=== PATIENT | female | born 1970 | race Caucasian/White ===

== ENCOUNTER → 2017-08-26 | Outpatient (CLI) | payer BC ==
[~2017-08-26] MED LIST: APTIOM800 MG PO; ELET40TA PO; GABA300T24 PO; TECFIDERA240 MG PO
== END ==
LOC: LAB 17:14
DX: N39.0 Urinary tract infection, site not specified (principal)
CPT/HCPCS: 87077; 87086; 87186

== ENCOUNTER 2019-09-15 12:40 | Day surgery (SDC) | payer BC ==
[~2019-09-15] VITALS: Ht 162.6 cm; Wt 53.0 kg
[~2019-09-15 12:40] MED LIST changes: +METO100ER PO
--- NOTE | 2019-09-15 15:08 | NUR ---
09/15/19 1508 Hilda Paulino 250CC NACL FLUID DEFICIT-MYOSURE PUMP 150CC NACL FLUID DEFICIT-I/O
--- NOTE | 2019-09-15 15:16 | NUR ---
09/15/19 1516 Sharda Julio PATIENT STATES THAT SHE IS NOT HAVING PAIN PER SE, THAT SHE IS SLIGHTLY UNCOMFORTABLE. PATIENT DOES NOT WANT PAIN MEDICATION AT THIS TIME. VSS. TOLERATING PO FLUIDS/FOOD. WILL CONTINUE TO MONITOR.
== END 2019-09-15 16:05 | disposition home or self-care (01) ==
LOC: ORSCSDS 12:40
PROVIDERS: Obstetrics & Gynecology
PROC: 0UDB8ZX Extraction of Endometrium, Via Natural or Artificial Opening Endoscopic, Diagnostic (ICD-10-PCS; principal; 2019-09-15 14:00)
PROC: 0U5B8ZZ Destruction of Endometrium, Via Natural or Artificial Opening Endoscopic (ICD-10-PCS; principal; 2019-09-15 14:00)
DX: N92.0 Excessive and frequent menstruation with regular cycle (principal); N94.6 Dysmenorrhea, unspecified; G35 Multiple sclerosis; Z79.899 Other long term (current) drug therapy
CPT/HCPCS: 88305; J0690; J1100; J2405; J2704; J3010; J7120

== ENCOUNTER → 2020-06-12 | Outpatient (CLI) | payer BC ==
[~2020-06-12] MED LIST changes: -GABA300T24 PO; +GRALISE300 M1 PO; +LIDO700A20 TOP; +OMEP20ER PO
[2020-06-12 14:39] LABS: BASOPHILS ABSOLUTE AUTO 0.05 K/mm3 (0.00-0.23); BASOPHILS PERCENT AUTO 1 % (0-2); EOSINOPHILS ABSOLUTE AUTO 0.01 K/mm3 (0.00-0.68); EOSINOPHILS PERCENT AUTO 0 % (0-6); Hematocrit 27.5 % (33.0-51.0); Hemoglobin 9.5 g/dL (11.5-16.0); IMMATURE GRAN ABSOLUTE AUTO 0.02 K/mm3 (0.00-0.10); IMMATURE GRAN PERCENT AUTO 0 % (0-1); LYMPHOCYTES ABSOLUTE AUTO 1.17 K/mm3 (0.84-5.20); LYMPHOCYTES PERCENT AUTO 16 % (21-46); MONOCYTES ABSOLUTE AUTO 0.41 K/mm3 (0.16-1.47); MONOCYTES PERCENT AUTO 6 % (4-13); Mean Corpuscular HGB Conc 34.5 g/dL (31.5-36.5); Mean Corpuscular Volume 90 fL (80-100); Mean Platelet Volume 10.9 fL (9.1-12.4); NEUTROPHILS ABSOLUTE AUTO 5.57 K/mm3 (1.96-9.15); NEUTROPHILS PERCENT AUTO 77 % (41-73); Platelet Count 265 K/mm3 (150-400); RDW Coefficient Variation 12.7 % (11.7-14.2); RDW Standard Deviation 41.7 fL (35.1-46.3); Red Blood Cell Count 3.06 M/mm3 (3.80-5.20); White Blood Cell Count 7.23 K/mm3 (4.00-11.30)
[2020-06-12 14:49] LABS: Alanine Aminotransfer (ALT/SGP 29 U/L (12-78); Albumin, Blood 3.6 g/dL (3.4-5.0); Albumin/Globulin Ratio 1.3 (0.8-1.8); Alk Phos 51 U/L (40-126); Anion Gap 10 mmol/L (6-16); Aspartate Aminotrans (AST/SGOT 15 U/L (12-37); Bilirubin, Total 0.2 mg/dL (0.1-1.0); Blood Urea Nitrogen 30 mg/dL (8-24); Bun/Creatinine Ratio 76.9 (12.0-20.0); CO2, Blood 24 mmol/L (21-32); Calcium, Blood 8.1 mg/dL (8.5-10.1); Chloride, Blood 103 mmol/L (98-108); Creatinine, Blood 0.39 mg/dL (0.40-1.00); Globulin, Blood 2.8 g/dL (2.2-4.0); Glomerular Filtration Rate >60 (60-); Glucose, Blood 130 mg/dL (70-99); Potassium, Blood 3.6 mmol/L (3.5-5.5); Sodium, Blood 137 mmol/L (136-145); Total Protein, Blood 6.4 g/dL (6.4-8.2)
[2020-06-12 16:45] LABS: IMMATURE RETIC FRACTION 13.7 % (2.3-16.0); RETICULOCYTE COUNT PERCENT 2.26 % (0.50-2.50)
== END | disposition home or self-care (01) ==
LOC: LAB SHORT 14:34 → LAB EV 14:34
PROVIDERS: Physician Assistant Medical
DX: K92.2 Gastrointestinal hemorrhage, unspecified (principal)
CPT/HCPCS: 80053; 83690; 85025; 85045

== ENCOUNTER 2020-06-13 14:42 | Inpatient (IN) | payer BC ==
[~2020-06-13] VITALS: Ht 162.6 cm; Wt 51.3 kg
[~2020-06-13 14:42] MED LIST changes: -HYDR1TAB94 PO; -LIDO700A20 TOP; -OMEP20ER PO
[2020-06-13] MEDS ORDERED: OMEP20ER PO (16:43)
[2020-06-13] MEDS ORDERED: LIDO700A20 TOP (16:44)
--- NOTE | 2020-06-13 17:50 | NUR ---
CALLED THE ED FOR REPORT AT 1710; HOWEVER NURSE NOT AVAILABLE AT THIS MOMENT AND WILL CALL BACK
--- NOTE | 2020-06-13 18:41 | NUR ---
PATIENT ARRIVED TO ROOM VIA W/C. DR. PRAKASH AT BEDSIDE ASSESSING PATIENT. VSS, HR 113, 100% ON RA. ORDER TO TRANSFUSE 1 UNIT PRBC'S. AWAITING BLOOD FROM BLOOD BANK. PATIENT ORIENTED TO ROOM AND USE OF CALL LIGHT.
--- NOTE | 2020-06-13 21:06 | NUR ---
CALL PLACED TO HOSPITALIST, DR. CHANDLER TO CHANGE TIMES ON PT'S LONG ACTING GABAPENTIN, APTIOM, AND METOPROLOL FROM AM AND EVENING TIMES TO HS.
[2020-06-13 23:33] LABS: Hematocrit 22.5 % (33.0-51.0); Hemoglobin 7.6 g/dL (11.5-16.0)
--- NOTE | 2020-06-14 05:01 | NUR ---
SHIFT ASSESSMENT: VSS. AFEB. HR 95-115. DENIES SOB. 02 SAT 98%. DENIES DIZZINESS OR LIGHTHEADEDNESS. 1 UNIT BLOOD ADMINISTERED PER ORDERS. H/H 7.6 AFTER INFUSION. PT REMAINS ON CLEAR LIQUIDS, WILL MOVE TO NPO STATUS AT 1300 IN PREP FOR EGD TODAY. MEDICATED FOR MIGRAINE AND BLACK CAFFEINATED TEA ADMINISTERED, PT STATES HELPFUL. MINOR HEADACHE THIS AM. SLEPT VERY LITTLE. NO BM REPORTED. NO N/V. ABD SOFT, NONTENDER, NONDISTENDED. WILL CONT TO MONITOR.
[2020-06-14 05:04] LABS: BASOPHILS ABSOLUTE AUTO 0.03 K/mm3 (0.00-0.23); BASOPHILS PERCENT AUTO 1 % (0-2); EOSINOPHILS ABSOLUTE AUTO 0.06 K/mm3 (0.00-0.68); EOSINOPHILS PERCENT AUTO 1 % (0-6); Hematocrit 22.4 % (33.0-51.0); Hemoglobin 7.4 g/dL (11.5-16.0); IMMATURE GRAN ABSOLUTE AUTO 0.03 K/mm3 (0.00-0.10); IMMATURE GRAN PERCENT AUTO 1 % (0-1); LYMPHOCYTES ABSOLUTE AUTO 1.97 K/mm3 (0.84-5.20); LYMPHOCYTES PERCENT AUTO 37 % (21-46); MONOCYTES ABSOLUTE AUTO 0.46 K/mm3 (0.16-1.47); MONOCYTES PERCENT AUTO 9 % (4-13); Mean Corpuscular HGB 30.2 pg (26.0-34.0); Mean Corpuscular Volume 91 fL (80-100); NEUTROPHILS ABSOLUTE AUTO 2.79 K/mm3 (1.96-9.15); NEUTROPHILS PERCENT AUTO 52 % (41-73); Platelet Count 191 K/mm3 (150-400); RDW Coefficient Variation 13.2 % (11.7-14.2); RDW Standard Deviation 42.8 fL (35.1-46.3); Red Blood Cell Count 2.45 M/mm3 (3.80-5.20); White Blood Cell Count 5.34 K/mm3 (4.00-11.30)
[2020-06-14 05:27] LABS: Anion Gap 3 mmol/L (6-16); Blood Urea Nitrogen 8 mg/dL (8-24); Bun/Creatinine Ratio 19.7 (12.0-20.0); CO2, Blood 28 mmol/L (21-32); Calcium, Blood 7.8 mg/dL (8.5-10.1); Chloride, Blood 112 mmol/L (98-108); Creatinine, Blood 0.41 mg/dL (0.40-1.00); Glomerular Filtration Rate >60 (60-); Glucose, Blood 93 mg/dL (70-99); Potassium, Blood 3.7 mmol/L (3.5-5.5); Sodium, Blood 143 mmol/L (136-145)
--- NOTE | 2020-06-14 07:39 | NUR ---
ASSUMED CARE OF PT- BEDSIDE REPORT COMPLETED WITH NIGHT ELIU COUGHLIN. PER REPORT PT IS HERE FOR GI BLEED. PLAN IS FOR UPPER SCOPE TODAY, SIPS AND CHIPS UNTIL 1300 THEN STRICT NPO. PT STATED SHE HAS A MIGRAINE THAT IS RETURNING AT THIS TIME WILL MEDICATE PER EMAR. PT STATED SHE HAS HAD NO MORE STOOLS SINCE ADMIT. 1 UNIT PRBC'S WERE ADMINISTERED LAST NIGHT. HGB IN THE 7 RANGE THIS AM. PT STATED SHE HAS A REMEDY SHE USES FOR HER MIGRAINE HEADACHES IF THE SUMATRIPTAN IS INEFFECTIVE HOWEVER IT IS THE SAME CLASS OF MEDICATION ADVIL AND ALEVE SO SHE IS UNABLE TO TAKE IT. PT ALERT AND ORIENTED INDEPENDENT IN THE ROOM PER REPORT. NO S&S OF DISTRESS AT THE TIME OF REPORT. SINUS 95 ON TELE LAST NIGHT, SHE HAS BEEN SINUS TACH PRIOR.
--- NOTE | 2020-06-14 15:34 | NUR ---
Patient up to Ambulate independently. Gait steady. History, Chart, Medications and Allergies reviewed before start of procedure.Lungs clear T/O to Auscultation. Patient confirms NPO status and agrees with scheduled surgery.
--- NOTE | 2020-06-14 15:37 | NUR ---
06/14/20 1537 AMELIA ARMSTRONG History, Chart, Medications and Allergies reviewed before start of procedure. 3-LEAD EKG REVIEWED WITH PHYSICIAN PRIOR TO START OF PROCEDURE. O2 VIA N/C INTACT THROUGHOUT SEDATION/PROCEDURE. MONITOR INTACT WITH CONTINUOUS PULSE OXIMETRY AND INTERMITTENT BP. PATIENT DETERMINED TO BE ASA APPROPRIATE FOR PROPOFOL SEDATION PRIOR TO START OF PROCEDURE BY DR. WEISS
[2020-06-14 16:33] LABS: Hematocrit 24.1 % (33.0-51.0); Hemoglobin 7.9 g/dL (11.5-16.0)
--- NOTE | 2020-06-14 19:35 | NUR ---
SHIFT SUMMARY- PT HAS BEEN NPO ALL SHIFT AND HAD AN UPPER ENDOSCOPY THIS EVENING WHERE A MASS WAS FOUND IN THE STOMACH, PT IS AWAREOF THIS. CT OF THE ABDOMEN WAS ORDERED WITH ORAL CONTRAST PER DR WEISS. DR WEISS SPOKE TO DR TRAYLOR ABOUT THE PT ALREADY, HE WILL POSSIBLY BE IN TO SEE HER TOMORROW. PT ALERT AND ORIENTED INDEPENDENT IN THE ROOM, CALLS APPROPRIATELY. PT HAS HAD A MIGRAINE ALL SHIFT, SPOKE TO [facility] WHO STATED THE PT IS ALLOWED 2 DOSES OF ELITRIPTAN IN 24 HOURS SO NEXT DOSE AVAILABLE AT 2030. PT MEDICATED WITH IV REGLAN AND TYLENOL THIS EVENING JUST PRIOR TO SHIFT CHANGE. BEDSIDE REPORT COMPLETED WITH NIGHT RN, CARE ROUNDING COMPOLETED AT THAT TIME.
--- NOTE | 2020-06-15 04:06 | NUR ---
SHIFT SUMMARY A/O, ABLE TO MAKE NEEDS KNOWN. COOPERATIVE WITH CARE. CALLS AND ANSWERS QUESTIONS APPROPRIATELY. INDEPENDENT IN ROOM. C/O PAIN IN THE FORM OF MIGRAINE; MEDICATED PER EMAR. UTILIZING NON-PHARM ALTERNATIVES WELL. CT COMPLETED. APPEARED TO REST INTERMITTENTLY. TELE RUNNING ST IN 100's. VSS/AFEBRILE. NO OTHER ACUTE CHANGES NOTED AT THIS TIME. BED REAMINS IN LOWEST POSITION. CALL LIGHT AND BELONGINGS WITHIN REACH. WCTM. REPORT TO ONCOMING RN.
[2020-06-15 06:08] LABS: Hematocrit 22.9 % (33.0-51.0); Hemoglobin 7.5 g/dL (11.5-16.0); Mean Corpuscular HGB Conc 32.8 g/dL (31.5-36.5); Mean Corpuscular Volume 95 fL (80-100); Mean Platelet Volume 10.2 fL (9.1-12.4); Platelet Count 222 K/mm3 (150-400); RDW Coefficient Variation 13.8 % (11.7-14.2); RDW Standard Deviation 45.3 fL (35.1-46.3); Red Blood Cell Count 2.42 M/mm3 (3.80-5.20); White Blood Cell Count 6.16 K/mm3 (4.00-11.30)
--- NOTE | 2020-06-15 09:36 | NUR ---
CALLED DR MCCORMICK- PT ALERT AND ORIENTED DENIES CP OR SOB HR ON TELE HAS BEEN TRENDING UP STEADILY SINCE 0900. TELE CALLED AT THE TIME OF THE CONVERSATION PT WAS UP TO SIT 140'S. RECIEVED ORDER FOR NS AT 100 ML PER HOUR PLACED ORDER WAITING FOR VERIFICATION. PT HAD GOTTEN UP TO USE THE BATHROOM AT THE TIME OF THE PHONE CALL AND HER HR CAME BACK DOWN TO 118 ON TELE ONCE SHE WAS AT REST.
[2020-06-15 09:59] LABS: BASOPHILS ABSOLUTE AUTO 0.05 K/mm3 (0.00-0.23); BASOPHILS PERCENT AUTO 1 % (0-2); EOSINOPHILS ABSOLUTE AUTO 0.05 K/mm3 (0.00-0.68); EOSINOPHILS PERCENT AUTO 1 % (0-6); Hematocrit 24.9 % (33.0-51.0); Hemoglobin 8.2 g/dL (11.5-16.0); IMMATURE GRAN ABSOLUTE AUTO 0.01 K/mm3 (0.00-0.10); IMMATURE GRAN PERCENT AUTO 0 % (0-1); LYMPHOCYTES ABSOLUTE AUTO 1.44 K/mm3 (0.84-5.20); LYMPHOCYTES PERCENT AUTO 24 % (21-46); MONOCYTES ABSOLUTE AUTO 0.54 K/mm3 (0.16-1.47); MONOCYTES PERCENT AUTO 9 % (4-13); Mean Corpuscular HGB 30.8 pg (26.0-34.0); Mean Corpuscular HGB Conc 32.9 g/dL (31.5-36.5); Mean Corpuscular Volume 94 fL (80-100); Mean Platelet Volume 10.1 fL (9.1-12.4); NEUTROPHILS ABSOLUTE AUTO 3.99 K/mm3 (1.96-9.15); NEUTROPHILS PERCENT AUTO 66 % (41-73); Platelet Count 244 K/mm3 (150-400); RDW Standard Deviation 44.5 fL (35.1-46.3); Red Blood Cell Count 2.66 M/mm3 (3.80-5.20); White Blood Cell Count 6.08 K/mm3 (4.00-11.30)
--- NOTE | 2020-06-15 13:58 | NUR ---
CALLED TELEPHONE REPORT TO MACHINE BANDER AND CELLOPHANER JENNIFER- PT STILL IN SURGERY AT THIS TIME, CALLED REPORT NO FURTHER QUESTIONS AT THIS TIME RN TO CALL WITH QUESTIONS. PT BELONGINGS TRANSFERED TO SURG ROOM 226, PT TELE BOX TRANSFERED, RN AWARE IT IS IN THE ROOM AND NEEDS TO BE VERIFIED AGAIN WHEN THE PT GETS BACK FROM SURGERY. NOTIFIED TELE OF PT TRANSFER.
--- NOTE | 2020-06-15 19:23 | NUR ---
POST OP: REPORT RECEIVED FROM MEDICAL RN MARIBEL, WELL LINUX SECURITY ADMINISTRATOR CATIA. PT TO UNIT AT ABOUT 1415. UPON ASSESSMENT PT IS A/O, A LITTLE SLEEPY. SURGICAL SITES WNL. VSS, PT DENIES PAIN AT THIS TIME. LINUX SECURITY ADMINISTRATOR REPORTS RANDAL DRAIN JUST EMPTIED, BULB COMPRESSED. NGT TO LIS PER ORDER. PT AT BEDSIDE. EDUCATED ABOUT CALL LIGHT. WILL CTM
--- NOTE | 2020-06-15 19:34 | NUR ---
SUMMARY: NO ACUTE CHANGE SINCE POST OP. TELE VERIFIED WITH LAURE FINE UPON PT ARRIVAL TO UNIT, PT GIVEN EVENING DOSE OF LOPRESSER. MEDICATED FOR PAIN PER EMAR. FLUIDS STARTED. PT ABLE TO SIT ON COMMODE AND ATTEMPTED TO VOID, WITHOUT SUCCESS. PLAN TO TRY AGAIN LATER, NOC RN MADE AWARE. REPORTED DIZZINESS WHEN UP, RESLOVED QUICKLY WHEN LAID BACK DOWN IN BED. PT DENIES DIZZINESS CURRENTLY. NO ACUTE SAFETY CONCERNS.
[2020-06-16 05:05] LABS: Hematocrit 21.7 % (33.0-51.0); Mean Corpuscular HGB 31.1 pg (26.0-34.0); Mean Corpuscular HGB Conc 32.3 g/dL (31.5-36.5); Mean Corpuscular Volume 96 fL (80-100); Mean Platelet Volume 10.2 fL (9.1-12.4); Platelet Count 214 K/mm3 (150-400); RDW Coefficient Variation 14.5 % (11.7-14.2); RDW Standard Deviation 46.7 fL (35.1-46.3); Red Blood Cell Count 2.25 M/mm3 (3.80-5.20); White Blood Cell Count 9.37 K/mm3 (4.00-11.30)
[2020-06-16 05:19] LABS: Albumin, Blood 2.7 g/dL (3.4-5.0); Anion Gap 5 mmol/L (6-16); Blood Urea Nitrogen 8 mg/dL (8-24); Bun/Creatinine Ratio 20.3 (12.0-20.0); CO2, Blood 26 mmol/L (21-32); Calcium, Blood 7.6 mg/dL (8.5-10.1); Chloride, Blood 112 mmol/L (98-108); Glomerular Filtration Rate >60 (60-); Glucose, Blood 101 mg/dL (70-99); Phosphorus, Blood 2.9 mg/dL (2.5-4.9); Potassium, Blood 3.6 mmol/L (3.5-5.5); Sodium, Blood 143 mmol/L (136-145)
--- NOTE | 2020-06-16 05:57 | NUR ---
SHIFT SUMMARY POD 1 EX LAP WITH MASS REMOVAL, AA0X4. PICCO CDI RANDAL DRAIN PATENT AND DRAINING 40ML. NG TUBE PATENT, 250ML BROWN LIQUID. MEDICATED FOR NAUSEA X2. PAIN MANAGED PER EMAR WITH DILAUDID X4. K PACK PROVIDED FOR ABD MUSCLE CRAMPING. PT STATED SOME RELIEF WITH THAT. PT UNABLE TO VOID DURING SHIFT AFTER TRYING MULTIPLE TIMES, HESITANT TO KEEP ATTEMPTING SHE GOT NAUSEOUS AND A LITTLE DIZZY WHEN TRANSFERING. AT END OF SHIFT REPORTED STARTING TO FEEL WEAKER STATED IT WAS A LITTLE LIKE WHEN SHE WENT TO URGENT CARE PRIOR TO ADMISSION.
--- NOTE | 2020-06-16 10:10 | NUR ---
NGT CLAMPED AT THIS TIME. WILL RESUME LIS IN ONE HR
[2020-06-16 11:30] LABS: Hematocrit 21.4 % (33.0-51.0); Hemoglobin 6.8 g/dL (11.5-16.0)
--- NOTE | 2020-06-16 17:10 | NUR ---
SUMMARY: PT IS POD1 EX LAP WITH REMOVAL OF MASS. PT A/O, VSS. PT REPORTED ABD "SPASMS" EARLY IN THE DAY AND THAT THE IV PAIN MEDICATION WAS HELPING ONLY A LITTLE. DR. TRAYLOR NOTIFIED AND PT STARTED ON DILAUDID MEDICAL INTERPRETER. PT ALSO RECEIVED 2 UNITS PRBC'S, TOLERATED TRANSFUSIONS WELL, VSS. LIQUID GABAPENTIN GIVEN THROUGH NGT, FLUSHED BEFORE AND AFTER AND CLAMPED FOR 1 HR AFTER EACH ADMINISTRATION. SURGICAL SITES/DRAINS WNL. PT REPORTS PAIN IS BETTER NOW THAT THE MEDICAL INTERPRETER IS INFUSING. PT ALSO UNABLE TO VOID, DR. MCCORMICK NOTIFIED AND TRUJILLO CATH PLACED PER ORDER. WILL CTM PT STATUS WILL PASS REPORT TO DIGNA NOWAK
[2020-06-17 04:54] LABS: BASOPHILS ABSOLUTE AUTO 0.02 K/mm3 (0.00-0.23); BASOPHILS PERCENT AUTO 0 % (0-2); EOSINOPHILS ABSOLUTE AUTO 0.04 K/mm3 (0.00-0.68); EOSINOPHILS PERCENT AUTO 1 % (0-6); Hematocrit 28.1 % (33.0-51.0); Hemoglobin 9.1 g/dL (11.5-16.0); IMMATURE GRAN ABSOLUTE AUTO 0.04 K/mm3 (0.00-0.10); IMMATURE GRAN PERCENT AUTO 1 % (0-1); LYMPHOCYTES ABSOLUTE AUTO 1.01 K/mm3 (0.84-5.20); LYMPHOCYTES PERCENT AUTO 12 % (21-46); MONOCYTES ABSOLUTE AUTO 0.69 K/mm3 (0.16-1.47); MONOCYTES PERCENT AUTO 8 % (4-13); Mean Corpuscular HGB Conc 32.4 g/dL (31.5-36.5); Mean Corpuscular Volume 96 fL (80-100); Mean Platelet Volume 10.3 fL (9.1-12.4); NEUTROPHILS ABSOLUTE AUTO 6.57 K/mm3 (1.96-9.15); NEUTROPHILS PERCENT AUTO 79 % (41-73); Platelet Count 207 K/mm3 (150-400); RDW Coefficient Variation 15.2 % (11.7-14.2); RDW Standard Deviation 51.1 fL (35.1-46.3); Red Blood Cell Count 2.94 M/mm3 (3.80-5.20); White Blood Cell Count 8.37 K/mm3 (4.00-11.30)
[2020-06-17 05:13] LABS: Albumin, Blood 2.5 g/dL (3.4-5.0); Anion Gap 8 mmol/L (6-16); Blood Urea Nitrogen 5 mg/dL (8-24); Bun/Creatinine Ratio 13.8 (12.0-20.0); CO2, Blood 23 mmol/L (21-32); Calcium, Blood 7.6 mg/dL (8.5-10.1); Chloride, Blood 112 mmol/L (98-108); Creatinine, Blood 0.36 mg/dL (0.40-1.00); Glomerular Filtration Rate >60 (60-); Glucose, Blood 76 mg/dL (70-99); Phosphorus, Blood 2.7 mg/dL (2.5-4.9); Potassium, Blood 3.2 mmol/L (3.5-5.5); Sodium, Blood 143 mmol/L (136-145)
--- NOTE | 2020-06-17 05:56 | NUR ---
SHIFT SUMMARY LYING IN SEMI FOWLERS WITH EYES OPEN. AAO X4, MILLER, FOLLOWS ALL COMMANDS. LIMBS ARE VERY WEAK, BUT PT IS ABLE TO MOVE THEM. STATES THAT SOME MOVEMENTS WILL CAUSE HER STOMACH TO HURT. DILAUDID BREAKER OPERATOR CONTROLLING PAIN, NURSING REITERATED NEED FOR USE A FEW TIMES. PT HAD ISSUES WITH PAIN WHEN HS MEDS GIVEN PER NG TUBE D/T. NOTED THAT LINE WAS CLOGGED. IRRIGATEING CAUSED BUILD UP IN ABD. GAS RELEASED AND HS MEDS INSTILLED. AFTER 1HR, SUCTION RECONNECTED AND MODERATE AMOUNT OF MENA/ORANGE FLUID NOTED DRAINING OUT OF NG TUBE. RANDAL DRAIN WITH COMPRESSED BULB. 45ML SEROUS FLUID EMPTIED. 350ML CLEAR ORANGE URINE EMPTIED FROM TRUJILLO BAG. DENEIS FURTHER NEEDS OR WANTS AT THIS TIME. SAFETY MEASURES IN PLACE. WILL CONTINUE TO MONITOR.
--- NOTE | 2020-06-17 08:53 | NUR ---
PT TO IMAGING AT THIS TIME
--- NOTE | 2020-06-17 10:48 | NUR ---
AGREE WITH MOTOR TRANSPORT INSPECTOR SHIFT ASSESSMENT
--- NOTE | 2020-06-17 11:29 | NUR ---
06/17/20 AT 0730 STUDENT REQUESTED PERMISSION TO ACCESS CHART AND PROVIDE CARE. PATIENT AGREES.
--- NOTE | 2020-06-17 16:06 | NUR ---
SHIFT SUMMARY PT HAD AN UPPER GI TODAY. NGT REMOVED. SLOWLY MARYANNE ICE CHIPS AND SIPS OF WATER. PT USING DILAUDID PROCUREMENT CONSULTANT FOR PAIN MANAGEMENT. JENNY DRESSING TO MIDLINE REMAINS UNCHANGED WITH SCANT BROWN DRAINAGE. RANDAL WITH SMALL AMOUNT OF SEROUS DRAINAGE. TRUJILLO IN PLACE FOR RETENTION. PT REPORTS PASSING SCANT FLATUS. DENIES N/V. IV FLUIDS TKO. PT SPOUSE AT BEDSIDE FOR SUPPORT. CALL LIGHT WITHIN REACH.
--- NOTE | 2020-06-18 05:19 | NUR ---
SHIFT SUMMARY POD # 3 EX LAP WITH GASTRECTOMY. JENNY TO MIDLINE CDI WITH SCANT AMOUNT OF DRAINAGE, NO CHANGE DURING THIS SHIFT. RANDAL TO RLQ IN PLACE WITH DRESSING CDI; DRAINING 60ML OF SS. PAIN MANAGED WITH DILAUDID ZOO KEEPER. TRUJILLO IN PLACE DRAINING CLEAR, YELLOW URINE. EDU/ENC T/C/DB WITH SPLINTING, PT VERBALIZED UNDERSTANDING AND DEMONSTRATED T/O SHIFT. MARYANNE ICE CHIPS/SIPS, DENIES N/V. A/OX4 W/VSS. PLAN TO WORK WITH THERAPY TODAY. PT CURRENTLY RESTING IN BED WITH CALL LIGHT IN REACH. WILL CONT TO MONITOR AND GIVE REPORT TO ONCOMING RN.
[2020-06-18 05:37] LABS: Hematocrit 28.6 % (33.0-51.0); Mean Corpuscular HGB 30.6 pg (26.0-34.0); Mean Corpuscular HGB Conc 31.5 g/dL (31.5-36.5); Mean Corpuscular Volume 97 fL (80-100); Mean Platelet Volume 10.4 fL (9.1-12.4); Platelet Count 230 K/mm3 (150-400); RDW Standard Deviation 51.3 fL (35.1-46.3); Red Blood Cell Count 2.94 M/mm3 (3.80-5.20); White Blood Cell Count 7.47 K/mm3 (4.00-11.30)
[2020-06-18 06:25] LABS: Albumin, Blood 2.5 g/dL (3.4-5.0); Anion Gap 11 mmol/L (6-16); Blood Urea Nitrogen 5 mg/dL (8-24); Bun/Creatinine Ratio 14.4 (12.0-20.0); CO2, Blood 20 mmol/L (21-32); Calcium, Blood 7.9 mg/dL (8.5-10.1); Chloride, Blood 111 mmol/L (98-108); Creatinine, Blood 0.35 mg/dL (0.40-1.00); Glomerular Filtration Rate >60 (60-); Glucose, Blood 61 mg/dL (70-99); Phosphorus, Blood 2.3 mg/dL (2.5-4.9); Potassium, Blood 3.4 mmol/L (3.5-5.5); Sodium, Blood 142 mmol/L (136-145)
--- NOTE | 2020-06-18 16:32 | NUR ---
SHIFT SUMMARY PT DID WELL TODAY AND REPORTS SHE IS FEELING BETTER. PT WAS UP IN THE CHAIR, AMBULATED HALLWAY X1, AND HAS BEEN TO THE BATHROOM WITH 1 SBA NEEDING HELP MOSTLY WITH LINES/CORDS. PT MOVES SLOWLY AND IS STILL WEAK, BUT DOES WELL. PT HAS USED HER DILAUDID PASTRY DECORATOR LESS TODAY THAN YESTERDAY. JENNY DRESSING TO MIDLINE REMAINS UNCHANGED. RANDAL DRAIN WITH SEROUS FLUIDS. TRUJILLO CATHETER REMOVED AND PT HAD FIRST SPONTANEOUS VOID THIS EVENING. PT STILL DENIES PASSING FLATUS, BUT REPORTS BURPING. TOLERATED CLEAR LIQ DIET WITH NO N/V AND PT IS GOING TO ATTEMPT FULL LIQS FOR DINNER. SIGNIFICANT OTHER AT BEDSIDE FOR SUPPORT. CALL LIGHT WITHIN REACH.
--- NOTE | 2020-06-18 19:29 | NUR ---
NOTIFIED FADY PACE OF PT BEING ST W/HR IN 130'S. PT RESTING IN BED WITH NO COMPLAINTS. NEW ORDER FOR ONE TIME DOSE OF PO LOPRESSOR OBTAINED, SEE EMAR. WILL ADMINISTER MEDICATION PER ORDER AND CONT TO MONITOR.
[2020-06-19 04:42] LABS: Hematocrit 26.2 % (33.0-51.0); Hemoglobin 8.5 g/dL (11.5-16.0); Mean Corpuscular HGB 30.4 pg (26.0-34.0); Mean Corpuscular HGB Conc 32.4 g/dL (31.5-36.5); Mean Corpuscular Volume 94 fL (80-100); Mean Platelet Volume 10.1 fL (9.1-12.4); Platelet Count 225 K/mm3 (150-400); RDW Coefficient Variation 14.6 % (11.7-14.2); RDW Standard Deviation 49.1 fL (35.1-46.3); White Blood Cell Count 4.52 K/mm3 (4.00-11.30)
[2020-06-19 05:00] LABS: Albumin, Blood 2.4 g/dL (3.4-5.0); Anion Gap 6 mmol/L (6-16); Blood Urea Nitrogen 3 mg/dL (8-24); Bun/Creatinine Ratio 7.8 (12.0-20.0); CO2, Blood 27 mmol/L (21-32); Chloride, Blood 109 mmol/L (98-108); Creatinine, Blood 0.39 mg/dL (0.40-1.00); Glomerular Filtration Rate >60 (60-); Glucose, Blood 85 mg/dL (70-99); Phosphorus, Blood 3.1 mg/dL (2.5-4.9); Potassium, Blood 3.3 mmol/L (3.5-5.5); Sodium, Blood 142 mmol/L (136-145)
--- NOTE | 2020-06-19 06:16 | NUR ---
SHIFT SUMMARY POD 4 EX LAP WITH PARTIAL GASTRECTOMY. JENNY TO MIDLINE, NO CHANGE TO SCANT AMOUNT OF DRAINAGE ON DRESSIG. RANDAL TO RLQ W/DRESSING CDI; 20ML SS OUT. HR MAINTAINED NSR IN 80'S T/O SHIFT AFTER PO TOPROL AT 1940. PAIN MANAGED WITH DILAUDID CARBIDER. AMB IN ROOM WITH SBA TO BATHROOM. IS VOIDING. MARYANNE PO INTAKE, DENIES N/V. PT STATES SHE "SLEPT GOOD AND IS FEELING BETTER." PT IS CURRENTLY RESTING IN BED WITH CALL LIGHT IN REACH. WILL CONT TO MONITOR AND GIVE REPORT TO ONCOMING RN.
--- NOTE | 2020-06-19 08:00 | NUR ---
pt reports min pain /10 only when getting oob to bathroom stated it makes her cough will place a abd binder pt stated she uses the canvas shop laborer before she gets up also had inc abd cramping with eating when she eats too fast or too much full liq diet no flatus but belching hypo bt's
--- NOTE | 2020-06-19 10:30 | NUR ---
per telephony engineer shira hr 82 ok to shower pt oob in recliner
--- NOTE | 2020-06-19 14:14 | NUR ---
pt stated she went slow with her meal and was able to take in 100 % but over 2 hrs time small amt of cramping only
--- NOTE | 2020-06-19 17:37 | NUR ---
pt sitting up in recliner
--- NOTE | 2020-06-19 19:12 | NUR ---
pt stated she did not eat as much for dinner then she did for lunch still no flatus and cont to feel bt's after the meal but they cause some abd cramping they last after the meal for about 1-2 hrs
[2020-06-20 05:31] LABS: Albumin, Blood 2.5 g/dL (3.4-5.0); Anion Gap 4 mmol/L (6-16); Blood Urea Nitrogen 3 mg/dL (8-24); Bun/Creatinine Ratio 8.1 (12.0-20.0); CO2, Blood 28 mmol/L (21-32); Calcium, Blood 8.3 mg/dL (8.5-10.1); Chloride, Blood 110 mmol/L (98-108); Creatinine, Blood 0.37 mg/dL (0.40-1.00); Glomerular Filtration Rate >60 (60-); Glucose, Blood 89 mg/dL (70-99); Magnesium, Blood 2.1 mg/dL (1.6-2.4); Phosphorus, Blood 3.3 mg/dL (2.5-4.9); Potassium, Blood 3.6 mmol/L (3.5-5.5); Sodium, Blood 142 mmol/L (136-145)
--- NOTE | 2020-06-20 06:04 | NUR ---
SHIFT SUMMARY POD5 FOR EXP LAP W/ GASTRECTOMY R/T GIB. VSS. PT HAD A GOOD SLEEP DURING SHIFT. PT REPORTS PASSING GAS, DENIES BM. PT DENIES FEELING BLOATED AND ABD DISTENTION. ALTHOUGH SHE REMAINS TO HAVE HYPOACTIVE BT. PT MARYANNE FULL LIQ DIET, TAKING INTAKE SLOW DUE TO DECREASE APPETITE. PT DENIES N/V. SHE USES HER SAND MIXER OPERATOR BEFORE GOING TO THE BATHROOM. SHE C/O MIGRAINE THIS MORNING, MEDICATED BY ELIU PLUMMER W/ HOME MEDS. SHE ALSO ASKED FOR CUP OF COFFEE. SHE HAS JENNY MID ABD REGION, REMAIN COMPRESSED, DRY AND INTACT. AND RANDAL DRAIN WITH SEROUS DRAINAGE. SHE IS SBA, TOLERATING AMBULATION WELL. TELE WITH SINUS RHYTHM OF 72. POTASSIUM IMPROVED FORM 3.3 TO 3.6. PT IS ASYMPTOMATIC, DENIES CP/SOB.
--- NOTE | 2020-06-20 12:04 | NUR ---
PT REPORTS BEING ABLE TO PASS GAS. DR. BARAHONA CAME IN AND TOOK OUT HER RANDAL DRAIN AND TOOK OFF HER JENNY DRESSING. RUDY ARE D/C/I AND RANDAL SITE IS COVERED WITH GAUZE AND TAPE. POSSIBLE DISCHARGE LATER TODAY SINCE PT REPORTS NO PAIN AND [place] GAVE ME A NORCO PERSCRIPTION. SHE WILL ATTEMPT SOFT FOODS AND SEE HOW SHE FEELS AFTER EATING.
--- NOTE | 2020-06-20 16:36 | NUR ---
SHIFT SUMMARY: POD 5 EXP LAP WITH GASTRECTOMY R/T GIB. PT IS ALERT AND ORIENTED X4 THROUGHOUT SHIFT. VITALS ARE WNL AND IS ON RA. SHE HAS BEEN ABLE TO PASS GAS. DR. TRAYLOR TOOK OUT HER RANDAL DRAIN EARLIER TODAY AND HAS GAUZE WITH TAPE OVER IT. JENNY HAS ALSO BEEN TAKEN OFF HER MIDLINE AND HER RUDY ARE NOW OPEN TO AIR. SHE HAS BEEN TOLERATING HER SOFT FOODS. SHE HAS BEEN VOIDING. DIPLOMATIC INTERPRETER PUMP HAS BEEN DISCONTINUED AND SHE REPORTS NOT HAVING ANY PAIN SINCE. HOWEVER, PAIN MEDICATIONS ARE ORDERED ON HER EMAR NEEDED. SHE HAS BEEN DRINKING FLUIDS THROUGHOUT SHIFT. SIGNIFICANT OTHER IS IN THE ROOM WITH HER. CALL LIGHT IS WITHIN REACH. THE PLAN IS TO BE DISCHARGED TOMORROW.
[2020-06-21 05:04] LABS: Hematocrit 28.9 % (33.0-51.0); Hemoglobin 9.2 g/dL (11.5-16.0); Mean Corpuscular HGB 30.1 pg (26.0-34.0); Mean Corpuscular HGB Conc 31.8 g/dL (31.5-36.5); Mean Corpuscular Volume 94 fL (80-100); Mean Platelet Volume 10.5 fL (9.1-12.4); Platelet Count 271 K/mm3 (150-400); RDW Coefficient Variation 14.2 % (11.7-14.2); RDW Standard Deviation 48.4 fL (35.1-46.3); Red Blood Cell Count 3.06 M/mm3 (3.80-5.20); White Blood Cell Count 3.27 K/mm3 (4.00-11.30)
[2020-06-21 05:24] LABS: Albumin, Blood 2.5 g/dL (3.4-5.0); Anion Gap 4 mmol/L (6-16); Blood Urea Nitrogen 6 mg/dL (8-24); Bun/Creatinine Ratio 15.4 (12.0-20.0); CO2, Blood 26 mmol/L (21-32); Calcium, Blood 8.1 mg/dL (8.5-10.1); Chloride, Blood 113 mmol/L (98-108); Creatinine, Blood 0.39 mg/dL (0.40-1.00); Glomerular Filtration Rate >60 (60-); Glucose, Blood 100 mg/dL (70-99); Phosphorus, Blood 3.2 mg/dL (2.5-4.9); Sodium, Blood 143 mmol/L (136-145)
--- NOTE | 2020-06-21 05:44 | NUR ---
SHIFT SUMMARY POD6 EXP LAP W/PARTIAL GASTRECTOMY. PT AOX4. VSS. NO ACUTE CHANGES DURING SHIFT. PT RERORTS MIGRAINE IS IMPROVING, MEDICATED W/ 1 NORCO AT BEDTIME. ABD PAIN 4/10, USUALY AFTER COUGHING. PT MARYANNE SOFT DIET, DENIES N/V. BT PRESENT. VOIDING ADEQUATELY, INDEPENDNT IN ROOM. SALINE LOCKED. CALL LIGHT W/IN REACH. PLAN FOR PT, DISCHARGE HOME IF TOLERATES SOFT DIET.
[2020-06-21] MEDS ORDERED: HYDR1TAB94 PO (10:34)
--- NOTE | 2020-06-21 13:10 | NUR ---
1215 SPOKE WITH Tamra TRAYLOR REGARDING PATIENT. DISCUSSED THAT PT IS PASSING FLATUS BUT HAS NOT HAD BM SINCE 06/14/20. PER DR TRAYLOR OK TO DISCHARGE PATIENT IS PASSING FLATUS AND MARYANNE SOFT DIET WITHOUT NAUSEA.
--- NOTE | 2020-06-21 13:12 | NUR ---
DISCHARGE ORDERS REVIEWED WITH PATIENT. PT IS MARYANNE DIET, AMBULATING UNASSISTED AND REPORTS PAIN IS CONTROLLED. PT WAITING FOR RIDE TO ARRIVE TO DISCHARGE
--- NOTE | 2020-06-21 13:16 | NUR ---
discharged to home
== END 2020-06-21 13:15 | disposition home or self-care (01) | DRG 327 ==
LOC: ER 14:42 → SURS 17:19 → MEDS 17:19 → SURS 06-15 14:09
PROVIDERS: Internal Medicine; Surgery; ADMIT Internal Medicine
PROC: 30233N1 Transfusion of Nonautologous Red Blood Cells into Peripheral Vein, Percutaneous Approach (ICD-10-PCS; principal; 2020-06-13)
PROC: 0DB60ZZ Excision of Stomach, Open Approach (ICD-10-PCS; 2020-06-15)
DX: K31.89 Other diseases of stomach and duodenum (principal); D62 Acute posthemorrhagic anemia; G35 Multiple sclerosis; I10 Essential (primary) hypertension; Z20.828 Contact with and (suspected) exposure to other viral communicable diseases; E87.6 Hypokalemia; E83.39 Other disorders of phosphorus metabolism; G43.709 Chronic migraine without aura, not intractable, without status migrainosus
CPT/HCPCS: 36415; 36430; 71260; 74177; 74240; 80048; 80069; 83735; 84703; 85014; 85018; 85025; 85027; 86850; 86900; 86901; 86920; 86923; 88309; 88341; 88342; 99284; A9270; A9270-GY; C9113; J0330; J1100; J1170; J1650; J1885; J2250; J2405; J2543; J2704; J2710; J2765; J3010; J3480; J7030; J7050; J7060; J7120; P9016; Q9967; U0004

== ENCOUNTER → 2020-06-13 | Outpatient (CLI) | payer BC ==
[~2020-06-13] MED LIST changes: +HYDR1TAB94 PO
[2020-06-13 13:54] LABS: Hemoglobin 6.9 g/dL (11.5-16.0)
== END | disposition home or self-care (01) ==
LOC: LAB SHORT 13:48 → LAB EV 13:48
PROVIDERS: Chiropractor
DX: D64.9 Anemia, unspecified (principal)
CPT/HCPCS: 85014; 85018

== ENCOUNTER → 2022-07-23 | Outpatient (CLI) | payer BC ==
[~2022-07-23] MED LIST changes: +HYDR1TAB94 PO; +LIDO700A20 TOP; +OMEP20ER PO
== END ==
LOC: LAB 08:35 → LAB SHORT 08:35
DX: J02.9 Acute pharyngitis, unspecified (principal)
CPT/HCPCS: 87081

== ENCOUNTER → 2023-01-02 | Outpatient (CLI) | payer BC | END | disposition home or self-care (01) | LOC: LAB SHORT 12:01 → LAB 12:01 | DX: R31.9 Hematuria, unspecified (principal) | CPT/HCPCS: 87077; 87086; 87186 ==

== ENCOUNTER 2024-09-22 09:56 | Day surgery (SDC) | payer BC ==
[~2024-09-22] VITALS: Ht 162.6 cm; Wt 59.0 kg
[~2024-09-22 09:56] MED LIST changes: +Lactated Ringer's 1,000 ML IV ONE; +Lidocaine HCl/Pf 1% 5 ML VIAL ONE; +propofoL 50 ML IV ONE
[2024-09-22] MEDS ORDERED: Vitamin D1000 UNI1 (10:20)
[2024-09-22] MEDS ORDERED: Erythromycin 2%30 GM (10:21)
[2024-09-22] MEDS ORDERED: QULIPTA60 MG (10:21)
[2024-09-22] MEDS ORDERED: TRAM50 (10:21)
[2024-09-22] MEDS ORDERED: ZOLM5 (10:22)
[2024-09-22] MEDS ORDERED: UBRELVY100 MG (10:22)
[2024-09-22] MEDS ORDERED: TECFIDERA240 MG (10:24)
[2024-09-22] MEDS ORDERED: Lactated Ringer's 1,000 ML IV ONE (10:40)
[2024-09-22 12:07] VITALS: BP 128/84
== END 2024-09-22 12:54 | disposition home or self-care (01) ==
LOC: ORSCSDS 09:56
PROVIDERS: Internal Medicine Gastroenterology
PROC: 0DJD8ZZ Inspection of Lower Intestinal Tract, Via Natural or Artificial Opening Endoscopic (ICD-10-PCS; principal; 2024-09-22 11:30)
DX: Z12.11 Encounter for screening for malignant neoplasm of colon (principal); Z90.49 Acquired absence of other specified parts of digestive tract; Z79.899 Other long term (current) drug therapy
CPT/HCPCS: J2003; J2704; J7120